=== PATIENT | male | born 1980 | race Caucasian/White ===

== ENCOUNTER 2025-05-27 11:06 | Emergency (ER) | payer BC, SELFPAY ==
[2025-05-27 11:12] VITALS: BP 163/101; PULSE 80; RESP 16; TEMP 36.6; O2SAT 98
--- OUTSIDE RECORDS SUMMARY | 2025-05-27 11:47 | XMS_ITS | Clinical Summary ---
Author Organization [address] Address [address] [place] [id number] Care Team Providers Care National Sales Trainer Name Role Phone Edgar Batres MD Primary Care Provider [phone] Allergies No known active allergies Medications lisinopriL (PRINIVIL,ZESTRI L) 30 mg tablet TAKE 1 TABLET BY MOUTH EVERY DAY 90 tablet 1 12/31/2022 Active amLODIPine (NORVASC) 5 mg tablet TAKE 1 TABLET (5 MG TOTAL) BY MOUTH DAILY. 90 tablet 12/31/2022 Active naproxen (NAPROSYN) 500 mg tablet TAKE 1 TABLET BY MOUTH TWICE A DAY WITH FOOD 60 tablet 05/06/2023 Active Active Problems Problem Noted Date Diagnosed Date Tinnitus of left ear 04/10/2022 Acute idiopathic gout of right hand 10/18/2021 Assessment & Plan (11/08/2021 4:13 PM CDT): Use naproxen prn - if no improvement may need to start allopurinol Assessment & Plan (10/18/2021 9:57 AM CDT): Started oral prednisone, now on day 4 of 40 mg daily with mild improvement. Hand is swollen and tender. Will do another 5 days of 20 mg every day of prednisone and high dose naproxen Class 2 severe obesity due t o excess calories with serious comorbidity and body mass index (BMI) of 38.0 to 38.9 in adult 10/11/2021 Assessment & Plan (05/13/2022 4:14 PM CDT): BMI Follow-up includes: nutrition counseling, exercise counseling. Assessment & Plan (04/10/2022 4:17 PM CDT): BMI Readings from Last 3 Encounters: 04/10/22 39.19 kg/m 11/08/21 37.89 kg/m 10/18/21 37.95 kg/m BMI Follow-up includes: nutrition counseling and exercise counseling. Worsening Recommend weight loss, probably worsening bp Assessment & Plan (11/08/2021 4:14 PM CDT): Continue diet changes and lifestyle changes, exercise. May improve gout as well Assessment & Plan (10/18/2021 9:52 AM CDT): HPI: Condition is not at/near goal bmi <30 A&P: Discussed/ordered labs, encouraged healthy, low carbohydrate lifestyle and at least 150min/week of exercise Assessment & Plan (10/11/2021 1:48 PM CDT): HPI: Condition is not at/near goal bmi <30 A&P: Discussed/ordered labs, encouraged healthy, low carbohydrate lifestyle and at least 150min/week of exercise Essential hypertension 10/11/2021 Assessment & Plan (05/13/2022 4:15 PM CDT): BP Readings from Last 3 Encounters: 05/13/22 150/98 04/10/22 159/92 11/08/21 138/88 Not at goal yet - will continue lisinopril 30 and start norvasc 5 due to other sx including cold feet. Should start daily aspirin for now Assessment & Plan (04/10/2022 4:16 PM CDT): HPI: Condition is not at/near goal A&P: Discussed/ordered labs, encouraged healthy, low carbohydrate lifestyle and at least 150min/week of exercise. Will increase lisinopril to 20 mg. Assessment & Plan (11/08/2021 4:14 PM CDT): Stable at this time, but states that he has been having some difficulty falling asleep since starting lisinopril. Unsure if related Assessment & Plan (10/18/2021 9:59 AM CDT): HPI: Condition is not at/near goal A&P: Discussed/ordered labs, encouraged healthy, low carbohydrate lifestyle and at least 150min/week of exercise. Continue lisinopril Has been better controlled at home Assessment & Plan (10/11/2021 1:47 PM CDT): HPI: Condition is not at/near goal A&P: Discussed/ordered labs, encouraged healthy, low carbohydrate lifestyle and at least 150min/week of exercise. Will start lisinopril and titrate as needed Immunizations Immunization Administration Dates Next Due Influenza, Unspecified 05/13/2022(Deferr ed: Patient Refused),04/20/2020(Deferred: Patient Refused) Family History Relation Name Status Comments Brother Alive Mother Alive Sister Alive Social History Tobacco Use Types Packs/Day Years Used Date Smoking Tobacco: Never Tobacco Cessation:Counseling Given: No Alcohol Use Standard Drinks/Week Comments Not Currently 0 (1 standard drink = 0.6 oz pur e alcohol) PHQ-2 Answer Date Recorded PHQ-2 Total Score (If total score is 3 or more points, staff should administer the PHQ-9) 0 05/13/2022 Personal Safety Answer Date Recorded Getting School Help Needed Not on file 07/15 Sex and Gender Information Value Date Recorded Sex Assigned at Not on file 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 Gender Identity Not on file Sexual Orientation Not on file Last Filed Vital Signs Vital Sign Reading Time Taken Comments Blood Pressure 150/98 05/13/2022 4:01 PM CDT Pulse 71 05/13/2022 4:01 PM CDT Temperature 36.7 C (98.1 F) 04/10/2022 3:55 PM CDT Respiratory Rate 18 05/13/2022 4:01 PM CDT Oxygen Saturation 97% 11/08/2021 4:00 PM CDT Inhaled Oxygen Concentration - - Weight 130.2 kg (287 lb) 05/13/2022 4:01 PM CDT Height 182.9 cm (6' 0.01) 05/13/2022 4:01 PM CD T Body Mass Index 38.92 05/13/2022 4:01 PM CDT Plan of Treatment Not on file Insurance [employer] Care Teams National Sales Trainer Relationship Specialty Start Date End Date Edgar Batres MD PCP - General Family Medicine 10/11/21
--- NOTE | 2025-05-27 12:24 | ED.GENADULT ---
HPI - General Adult General Chief complaint: Extremity Problem,Nontraumatic Stated complaint: gout in right elbow Time Seen by Provider: 05/27/25 12:24 Source: patient, RN notes reviewed and old records reviewed Mode of arrival: ambulatory Limitations: no limitations History of Present Illness HPI narrative: 45 year old male presents to express care with complaints of pain, swelling warmth and redness to his right elbow all week long.Reports no injury to his right elbow Patient reports that he has had gout flares before in his right elbow and in his great toe and has been taking Ibuprofen with no improvement. Patient reports that he ate some salami the other day which he thinks brought this on and has been on Keto diet for weight loss. Patient reports that he has responded to Indomethacin in the past and is requesting this medication. Also patient is on no preventative management of gout at this time will have patient start on Allopurinol after flare has resolved and have him follow up with PCP for any adjustment to medication. Patient encouraged to maintain purine diet restrictions. MD complaint: pain to right elbow joint Onset (ago): day(s) (5) Location: right and upper extremity (elbow) Severity scale (1-10): 6 Quality: aching, dull and constant Treatments prior to arrival: NSAID Related Data Allergies Allergy/AdvReac Type Severity Reaction Status Date / Time No Known Allergies Allergy Verified 05/27/25 11:31 Review of Systems Review of Systems: CONSTITUTIONAL: Denies fever, chills, or sweats. EYES: Denies visual changes, redness, or discharge. ENT: Denies rhinorrhea, congestion, sore throat, or otalgia. CARDIOVASCULAR: Denies chest pain, palpitations, or edema. RESPIRATORY: Denies cough or dyspnea. GASTROINTESTINAL: Denies abdominal pain, nausea, vomiting, or diarrhea. GENITOURINARY: Denies dysuria or hematuria. SKIN: Denies rash or itching. MUSCULOSKELETAL: Denies back pain,positive for right elbow pain with some swelling in joint, no injury, or myalgia. NEUROLOGIC: Denies headache, numbness, or weakness. PSYCHIATRIC: Denies anxiety or depression. All systems reviewed & are unremarkable except as noted in HPI and below PMFSH Past Medical History Medical History (Updated 05/28/25 @ 14:53 by Rubina Short APRN) Gout Social History Social History (Updated 05/28/25 @ 14:48 by Rubina Short APRN) Alcohol intake: current Alcohol use details: social Substance use type: does not use Living arrangements: with family Gender identity (if verbalized by the patient): Male Comments At time of signature, agree with nursing past medical, surgical, social and family history. There is no relevant family history pertinent to the presenting complaint Exam Narrative: GENERAL: Well-appearing, well-nourished, obese,and in no acute distress. HEAD: Normocephalic, atraumatic. EYES: PERRLA and EOMI. ENT: Nares clear, no rhinorrhea or epistaxis. Mucous membranes moist.TM's normal throat pink with no lesions or swelling NECK: Supple.no lymphadenopathy CHEST: Clear to auscultation. No respiratory distress.no cough or congestion SAO2 98% on room air HEART: Regular rate and rhythm. No murmur heard. Normal peripheral pulses. ABDOMEN: Soft, nontender, nondistended, normal active bowel sounds. EXTREMITIES: Normal range of motion. No edema.Exception noted to right elbow with pain swelling and redness warmth at right elbow joint increased pain with movement no injury reported,Patient has strong pulses to right arm and wrist with no tingling or numbness voiced. SKIN: Warm, dry, no rash. NEURO: No focal deficits. Alert and oriented x3. Course Course Emergency Course: Patient is aware of diagnosis, understands and agrees to treatment plan.? Anticipatory guidance given.? Patient agrees to follow-up as directed and is aware of reasons to seek care at the emergency department. Portions of this record may have been created with voice recognition software Level of Care: Express Care Visit Vital Signs Vital signs: Vital Signs Temperature 36.6 C 05/27/25 11:12 Pulse Rate 80 05/27/25 11:12 Respiratory Rate 16 05/27/25 11:12 Blood Pressure 163/101 H 05/27/25 11:12 Pulse Oximetry 98 05/27/25 11:12 Oxygen Delivery Room Air 05/27/25 11:12 Temperature 36.6 C 05/27/25 11:12 Pulse Rate 80 05/27/25 11:12 Respiratory Rate 16 05/27/25 11:12 Blood Pressure 163/101 H 05/27/25 11:12 Pulse Oximetry 98 05/27/25 11:12 Oxygen Delivery Room Air 05/27/25 11:12 Reviewed Medical Decision Making MDM Narrative Medical decision making narrative: Exam findings and imaging show no acute concerns or changes; patient is non-toxic appearing and is in no distress.? Patient is appropriate for outpatient treatment and follow-up Differential Diagnosis Differential Diagnosis: pain to right elbow, warmth and swelling of right elbow, gout flare right elbow Medical Records Medical records reviewed: Yes I reviewed the external patient's medical records. Vital Signs Vital Signs: Vital Signs Temperature 36.6 C 05/27/25 11:12 Pulse Rate 80 05/27/25 11:12 Respiratory Rate 16 05/27/25 11:12 Blood Pressure 163/101 H 05/27/25 11:12 Pulse Oximetry 98 05/27/25 11:12 Oxygen Delivery Room Air 05/27/25 11:12 Temperature 36.6 C 05/27/25 11:12 Pulse Rate 80 05/27/25 11:12 Respiratory Rate 16 05/27/25 11:12 Blood Pressure 163/101 H 05/27/25 11:12 Pulse Oximetry 98 05/27/25 11:12 Oxygen Delivery Room Air 05/27/25 11:12 reviewed Critical Care Time Critical Care Time Critical Care Time: No Discharge Plan Discharge Clinical Impression: Gout Qualifiers: Gout site: elbow Gout etiology: unspecified cause Chronicity: acute Laterality: right Qualified Code(s): M10.9 - Gout, unspecified Patient Disposition: Home Condition: Stable Instructions: Antibiotic Form, Gout (ED) Additional Instructions: Tylenol for lesser pain Ibuprofen regularly for the next 2-3 days for the inflammation Indomethacin per patient request for gout flare and then to start Allopurinol 100 mg after flare has subsided Follow-up with PCP if further problems or concerns Ice to the area 20-30 minutes 4-6 times a day Elevate above heart If your symptoms persist, change or worsen significantly before you can contact your personal physician then please, without delay, go to the emergency department for further evaluation. Follow-up with PCP in 7-10 days or sooner if needed Follow up with PCP soon in regards to your blood pressure which is elevated above threshold for referral. Blood pressure above 120/80 may indicate pre-hypertension. 163/101 Patient Language: Arabic Prescriptions: New indomethacin 50 mg capsule 50 mg PO TID Qty: 14 0RF Rx Instructions: administer with food or milk allopurinol 100 mg tablet 100 mg PO DAILY Qty: 30 0RF Rx Instructions: start this medication after flare of gout has resolved Follow-up/Referrals: PHYSICIAN,TRAFFIC CHIEF [Primary Care Provider, Internal Medicine] Time of Disposition: 12:36 Quality [place] Coma Scale Eyes: Open Verbal: Oriented and Alert Motor: Follows Commands [place] Coma Total Score: 15
== END 2025-05-27 12:41 | disposition home or self-care (01) ==
PROVIDERS: Emergency Provider Registered Nurse
DX: M10.9 Gout, unspecified (principal)
CPT/HCPCS: 99213; G0463